=== PATIENT | male | born 1960 | race Caucasian/White ===

== ENCOUNTER 2018-04-17 14:12 | Emergency (ER) | payer OTHER ==
[2018-04-17] MEDS ORDERED: NS 0.9% 1000 ML* 1,000 ML IV ONE (14:22)
[2018-04-17] MEDS ORDERED: HYDROmorphone INJ* 2 MG/ML CARPUJECT SYRINGE IV SLOW PU ONE (14:24)
--- NOTE | 2018-04-17 14:26 | ED ---
Abdominal Pain/Male - HPI Summary HPI Summary: This is scribe Sarah Liu documenting for attending Anil Gross MD. 57 year old M [place] [facility] [place] severe [place] secondary to right-sided abdominal pain radiating to his right groin that began 40 minutes ago after out- patient liver biopsy. The patient rates the pain 10/10 in severity. Symptoms aggravated by nothing. Symptoms alleviated by nothing. Nurse from biopsy reports diaphoresis, hypertension. He had ultrasound and CT scan without contrast done earlier with Dr. Lopez, radiology. Per nurse from biopsy, patient has no cardiac hx, no respiratory hx. - History of Current Complaint Stated Complaint: ABD PAIN Hx Obtained From: Other: - nurse from biopsy Onset/Duration: Lasting Minutes - 40 minutes, Still Present Timing: Constant Severity Currently: Severe Pain Intensity: 10 Pain Scale Used: 0-10 Numeric Location: Other - right-sided Radiates: Yes Radiates to: Other - right groin Aggravating Factor(s): Nothing Alleviating Factor(s): Nothing Associated Signs And Symptoms: Positive: Other - diaphoresis, hypertension - Allergies/Home Medications Allergies/Adverse Reactions: Allergies Allergy/AdvReac Type Severity Reaction Status Date / Time No Known Allergies Allergy Verified 04/17/18 12:06 Home Medications: Home Medications [place]-3 Fatty Acids/Fish Oil [Fish Oil 1,000 mg Capsule] 1 each PO BID 04/17/18 [History Confirmed 04/17/18] PMH/Surg Hx/FS Hx/Imm Hx Previously Healthy: No Cardiovascular History: Denies: Hx Hypertension Respiratory History: Denies: Hx Asthma, Hx Chronic Obstructive Pulmonary Disease (COPD) GI History: Denies: Hx Cirrhosis - Surgical History Surgery Procedure, Year, and Place: [place], [place] [facility] [place]. liver biopsy 04/17/2018 Infectious Disease History: Denies: Hx Hepatitis - Family History Known Family History: Negative: Blood Disorder - Social History Alcohol Use: Daily Alcohol Amount: states 15 oz per week Hx Substance Use: No Substance Use Type: Reports: None Hx Tobacco Use: Yes Smoking Status (MU): Smoker, Current Status Unknown Type: Smokeless Tobacco Amount Used/How Often: daily Review of Systems Positive: Skin Diaphoresis, Other - hypertension Positive: Abdominal Pain - radiating to his right groin All Other Systems Reviewed And Are Negative: Yes Physical Exam - Summary Physical Exam Summary: VITAL SIGNS: Reviewed. GENERAL: Patient is a well-developed and nourished male who is in severe distress. HEAD AND FACE: Normocephalic and atraumatic. EYES: PERRLA, EOMI x 2, No injected conjunctiva. EARS: Hearing grossly intact. Ear canals and tympanic membranes are WNL. MOUTH: Oropharynx within normal limits. NECK: Supple, trachea is midline, no adenopathy, no JVD. CHEST: Symmetric, no tenderness at palpation LUNGS: Clear to auscultation bilaterally. No wheezing or crackles. CVS: RRR, S1 and S2 present, no murmurs or gallops appreciated. ABDOMEN: Abdominal distension, right-sided abdominal tenderness. Some guarding, no rebound EXTREMITIES: FROM in all major joints, no edema, no cyanosis or clubbing. NEURO: Alert and oriented x 3. No acute neurological deficits. Speech is normal. SKIN: Patient is diaphoretic Triage Information Reviewed: Yes Vital Signs Reviewed: Yes Diagnostics - Laboratory Result Diagrams: 04/17/18 14:55 04/17/18 14:55 Lab Statement: Any lab studies that have been ordered have been reviewed, and results considered in the medical decision making process. - EKG 1428 Cardiac Rate: Bradycardia - 54 BPM EKG Rhythm: Sinus Bradycardia EKG Interpretation: Poor quality EKG without any ST elevations Re-Evaluation - Re-Evaluation First Eval Re-Evaluation Time: 15:26 Comment: Patient is complaining of no pain. Pain is rated 0/10. Upon exam, abdomen is soft, non-tender except for area of biopsy, has good bowel sounds. Abdominal Pain Fem Course/Dx - Course Assessment/Plan: Patient is a 57-year-old male who presents to the emergency room after he was transferred from radiology department with chief complaint of severe abdominal pain. It is reported that the patient had a liver biopsy approximately 2:10 PM and after the biopsy the patient developed severe right- sided abdominal pain. Initial physical exam the patient is diaphoretic and with tenderness in the right side of the abdomen with some guarding but no rebound. Initially the we obtained 2 weeks IV accesses, the patient was given diluted for the pain and that work was ordered. The patient is hemodynamically at this time. I placed a consult with surgery with Dr. Moses that the doctor said was in the OR performing surgery. Dr. Nicolas who performed the biopsy reports that he did a abdominal ultrasound which show no abnormality. He also perform an abdominopelvic CT without contrast and shows that his no acute findings. Blood work without any significant abnormality. The patient has been observed for approximately 3 hours and the pain did not return. The pain was resolved with the medication. I did multiple abdominal exams and the patient's pain did not return the abdomen at this point is soft nontender with positive bowel sounds. I discussed the case with Dr. Nicolas from radiology who performed the biopsy and since the patient doesn't have any pain, bilateral signs are stable, the patient can be discharged home with follow-up with PCP. I gave her specific instructions to the patient and the patient's that he gave he develops any other pain, shortness of breath, nausea vomiting, diarrhea or constipation or any other symptoms he should return to the emergency room for further workup and management. Patient is hemodynamically stable alert and oriented 3. - Diagnoses Provider Diagnoses: Right sided abdominal pain Discharge - Sign-Out/Discharge Documenting (check all that apply): Patient Departure - Discharge Plan Condition: Stable Disposition: HOME Patient Education Materials: Abdominal Pain (ED) Referrals: Walter Le MD [Primary Care Provider] - Additional Instructions: Patient is discharged home with follow-up with primary care physician. Patient given instruction if any increased abdominal pain, nausea vomiting or diarrhea he should return to the emergency room for further workup and management. Patient is to increase his fluid intake. - Billing Disposition and Condition Condition: STABLE Disposition: Home
[2018-04-17 15:08] LABS: ABS Basophils 0 10^3/ul (0-0.2); ABS Eosinophils 0.1 10^3/ul (0-0.6); ABS Lymphocytes 3.2 10^3/ul (1.0-4.8); ABS Monocytes 0.3 10^3/ul (0-0.8); ABS Neutrophils 3.5 10^3/ul (1.5-7.7); ABS Nucleated RBC 0 10^3/ul; Eosinophil % 1.5 % (0-6); Hematocrit 46 % (42-52); Hemoglobin 16.3 g/dl (14.0-18.0); Lymphocyte % 44.6 % (25-47); Mean Corpuscular HGB Conc 35 g/dl (31-36); Mean Corpuscular Hemoglobin 32 pg (27-31); Mean Corpuscular Volume 91 fL (80-94); Mean Platelet Volume 7.2 um3 (7.4-10.4); Nucleated Red Blood Cells % 0.1; Platelet Count 194 10^3/ul (150-450); Red Blood Count 5.07 10^6/ul (4.00-5.40); Red Cell Distribution Width 14 % (10.5-15); White Blood Count 7.2 10^3/ul (3.5-10.8)
[2018-04-17 15:19] LABS: INR 0.98 (0.77-1.02)
[2018-04-17 15:26] LABS: EGFR Non-African American 78.5 (>60)
[2018-04-17 16:35] LABS: Urine Appearance Clear; Urine Blood Negative (Negative); Urine Color Yellow; Urine Ketones Trace (Negative); Urine Protein Negative (Negative); Urine Specific Gravity 1.015 (1.010-1.030); Urine Urobilinogen Negative (Negative)
[2018-04-17 16:57] VITALS: BP 160/102
== END 2018-04-17 17:14 | disposition home or self-care (01) ==
LOC: ED 14:12
DX: R10.9 Unspecified abdominal pain (principal); I10 Essential (primary) hypertension; Z87.891 Personal history of nicotine dependence
CPT/HCPCS: 36415; 80053; 81003; 83605; 83690; 84484; 85025; 85610; 85730; 86140; 86850; 86900; 86901; 93005; 96374; 99283; J1170

== ENCOUNTER 2020-01-21 20:10 | Inpatient (IN) | payer OTHER ==
[2020-01-21] MEDS ORDERED: NS 0.9% 1000 ML** 1,000 ML IV ONE (20:16)
[2020-01-21] MEDS ORDERED: Heparin for STEMI(*) 5,000 UNITS/ML 1 ML VIAL IV ONE (20:16)
[2020-01-21] MEDS ORDERED: Nitroglycerin TAB 0.4 MG* 0.4 MG TAB SL ONE (20:16)
--- NOTE | 2020-01-21 20:16 | ED ---
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 Patient reports he had just finished eating supper when his chest pain began. Patient states he then burped a few times and felt nauseous and diaphoretic. Denies vomiting. He reports he has never had these symptoms in the past. Denies shortness of breath, cough, fever, chills. 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 No nitroglycerin was given. Patient denies PMHx. Patient does not take any medications on a daily basis. He chews tobacco. Medications reviewed. Allergies noted. 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 Negative: Shortness of Breath, Fever, Vomiting - Allergy/Home Medications Allergies/Adverse Reactions: Allergies Allergy/AdvReac Type Severity Reaction Status Date / Time No Known Allergies Allergy Verified 04/17/18 12:06 Home Medications: Home Medications [place]-3 Fatty Acids/Fish Oil [Fish Oil 1,000 mg Capsule] 1 each PO BID 04/17/18 [History Confirmed 01/21/20] Tadalafil (NF) [Adcirca (NF)] 20 mg PO DAILY PRN 01/21/20 [History Confirmed ] Aspirin 81 mg CHEW TAB* 81 mg PO DAILY 90 Days #90 tab.chew 01/24/20 [Rx] Atorvastatin* [Lipitor 80 MG*] 80 mg PO 1700 90 Days #90 tab 01/24/20 [Rx] Lisinopril TAB* [Prinivil TAB 5 MG*] 5 mg PO DAILY 90 Days #90 tab 01/24/20 [Rx] Metoprolol Succinate XL TAB* [Toprol XL TAB*] 75 mg PO DAILY 30 Days #45 tab.xl 01/24/20 [Rx] Ticagrelor* [Brilinta 90 MG*] 90 mg PO BID 90 Days #180 tab 01/24/20 [Rx] metFORMIN* [Glucophage 500 MG TAB *] 500 mg PO DAILY 30 Days #30 tab 01/24/20 [ Rx] PMH/Surg Hx/FS Hx/Imm Hx Endocrine/Hematology History: Denies: Hx Diabetes Cardiovascular History: Denies: Hx Hypertension Respiratory History: Denies: Hx Asthma, Hx Chronic Obstructive Pulmonary Disease (COPD) GI History: Denies: Hx Cirrhosis - Surgical History Surgical History: Yes Surgery Procedure, Year, and Place: [place] [facility] liver biopsy 04/17/2018 Infectious Disease History: Denies: Hx Hepatitis, Traveled Outside the [place] in Last 30 Days - Family History Known Family History: Negative: Blood Disorder - Social History Alcohol Use: Daily Alcohol Amount: states 15 oz per week Hx Substance Use: No Substance Use Type: Reports: None Hx Tobacco Use: Yes Smoking Status (MU): Smoker, Current Status Unknown Type: Smokeless Tobacco Do You Chew or Dip Tobacco: Yes - chews tobacco Amount Used/How Often: daily Review of Systems Positive: Skin Diaphoresis. Negative: Fever, Chills Positive: Chest Pain Negative: Shortness Of Breath, Cough Gastrointestinal: Other - POSITIVE: belching Positive: Nausea. Negative: Vomiting Musculoskeletal: Other - POSITIVE: left arm pain All Other Systems Reviewed And Are Negative: Yes Physical Exam - Summary Physical Exam Summary: Constitutional: Well-developed, Well-nourished, Alert. Mildly distressed Skin: Warm, Diaphoretic. HENT: Normocephalic; Atraumatic Eyes: Conjunctiva normal Neck: Musculoskeletal ROM normal neck. (-) JVD, (-) Stridor, (-) Tracheal deviation Cardio: Rhythm regular, rate normal, Heart sounds normal; Intact distal pulses; The pedal pulses are 2+ and symmetric. Radial pulses are 2+ and symmetric. (-) Murmur Pulmonary/Chest wall: Effort normal. (-) Respiratory distress, (-) Wheezes, (-) Rales Abd: Soft, (-) tenderness, (-) Distension, (-) Guarding, (-) Rebound Musculoskeletal: (-) Edema Lymph: (-) Cervical adenopathy Neuro: Alert, Oriented x3 Psych: Mood and affect Normal Triage Information Reviewed: Yes Vital Signs On Initial Exam: Initial Vitals Temp Pulse Resp BP Pulse Ox 97 F 84 20 162/134 98 01/21/20 20:19 01/21/20 20:19 01/21/20 20:19 01/21/20 20:19 01/21/20 20:19 Vital Signs Reviewed: Yes Procedures - Sedation Patient Received Moderate/Deep Sedation with Procedure: No Diagnostics - Laboratory Result Diagrams: 01/22/20 05:10 01/23/20 05:57 Lab Statement: Any lab studies that have been ordered have been reviewed, and results considered in the medical decision making process. - Radiology Chest XR Radiology Interpretation Completed By: ED Physician Summary of Radiographic Findings: Pending official radiology report. - EKG 20:10 Cardiac Rate: NL - at 76 bpm EKG Rhythm: Sinus Rhythm Summary of EKG Findings: EKG at 20:10 shows sinus rhythm at a rate of [address] elevations of 2 mm in V1-V3. Hyperacute T waves in those leads. No reciprocal changes. This EKG was interpreted and reviewed by ED physician. Re-Evaluation - Re-Evaluation First Eval Re-Evaluation Time: 20:30 Comment: Dr. Valencia, interventionalist, at bedside. Patient will go to microbiology lab analyst. Chest Pain Course/Dx - Course Course Of Treatment: Patient is here with 3 hours of chest pain that acutely became worse this prior to EMS arrival. Upon arrival here, patient was noted to have ST elevations in his anterior leads with no reciprocation. Patient's EMS EKGs were concerning as well. Given patient's presentation and EKG changes , a code STEMI was called. Patient was emergently given 7000 units of heparin, 180 mg of Brilinta. Patient received 324 mg of aspirin with EMS. Patient did receive nitroglycerin in the ED and then later said he took erectile dysfunction medicine this morning. Patient's blood pressure was stable after receiving nitroglycerin. Patient was emergently taken to the [facility] by Dr. Valencia. - Diagnoses Provider Diagnoses: STEMI (ST elevation myocardial infarction) During the Visit The Following Alert/Code Occurred: STEMI - at 20:15 - Provider Notifications Discussed Care Of Patient With: Alhaji Valencia Time Discussed With Above Provider: 20:23 Instructed by Provider To: Other - Discussed case with Dr. Valencia, interventionalist, who will come see patient in the ED. - Critical Care Time Critical Care Time: 30-74 min - 35 minutes Critical Care Statement: Critical care time is provided exclusive of any time spent performing procedures. Discharge ED - Sign-Out/Discharge Documenting (check all that apply): Patient Departure - [place] [facility] [place] Discharge Plan Condition: Stable Disposition: ADMITTED TO [facility] - Billing Disposition and Condition Condition: STABLE Disposition: Admitted to [facility] - Attestation Statements Document Initiated by Scribe: Yes Documenting Scribe: Tiffany Barnhart Provider For Whom Scribe is Documenting (Include Credential): Cyrus Fiore MD Scribe Attestation: Tiffany Greenfield, scribed for Cyrus Fiore MD on 01/24/20 at 0937. Scribe Documentation Reviewed: Yes Provider Attestation: The documentation as recorded by the scribeTiffany accurately reflects the service I personally performed and the decisions made by , Cyrus Fiore MD Status of Scribe Document: Viewed
[2020-01-21] MEDS ORDERED: Ticagrelor* 90 MG TAB PO ONE (20:23)
[2020-01-21] MEDS ORDERED: Heparin 2 UNITS/ML IVPREMIX* 2,000 ML IV ONE (20:31)
[2020-01-21] MEDS ORDERED: nitroGLYCERIN DRIP* 0 MCG/0 ML BTL ONE (20:31)
[2020-01-21] MEDS ORDERED: VERAPAMIL 2.5 MG/ML 2 ML VIAL ** 5 mg/2 ml ONE (20:31)
[2020-01-21] MEDS ORDERED: Heparin(*) 1000 UNIT/ML 10 ML VIAL CATH LAB IV ONE (20:31)
[2020-01-21] MEDS ORDERED: Lidocaine 1% INJ* 10 MG/ML 30 ML SDV ONE (20:32)
[2020-01-21] MEDS ORDERED: Iohexol 350 (CONTRAST) 200 ML MDV IV ONE ×2 (20:32→21:42)
[2020-01-21 20:34] LABS: ABS Eosinophils 0.1 10^3/ul (0-0.6); ABS Lymphocytes 3.4 10^3/ul (1.0-4.8); ABS Monocytes 0.5 10^3/ul (0-0.8); ABS Neutrophils 3.9 10^3/ul (1.5-7.7); Eosinophil % 1.5 %; Hematocrit 49 % (42-52); Hemoglobin 17.2 g/dL (14.0-18.0); Lymphocyte % 42.5 %; Mean Corpuscular HGB Conc 35 g/dL (31-36); Mean Corpuscular Hemoglobin 32 pg (27-31); Mean Corpuscular Volume 91 fL (80-94); Mean Platelet Volume 7.3 fL (7.4-10.4); Nucleated Red Blood Cells % 0.1; Platelet Count 198 10^3/uL (150-450); Red Blood Count 5.42 10^6 /uL (4.18-5.48); Red Cell Distribution Width 13 % (10-15); White Blood Count 8.1 10^3/uL (3.5-10.8)
[2020-01-21] MEDS ORDERED: niCARdipine 0.1MG/ML IVPREMIX* 20 MG/200 ML BAG IV ONE (20:41)
[2020-01-21 20:46] LABS: Activated Partial Thrombo Time 35.8 seconds (26.0-38.0); INR 1.06 (0.82-1.09)
[2020-01-21 20:55] LABS: ALT 71 U/L (7-52); AST 57 U/L (13-39); Albumin 4.6 g/dL (3.2-5.2); Albumin/Globulin Ratio 1.4 (1-3); Alkaline Phosphatase 37 U/L (34-104); Anion Gap 12 mmol/L (2-11); BUN/Creatinine Ratio 11.6 (8-20); Blood Urea Nitrogen 11 mg/dL (6-24); CO2 Carbon Dioxide 25 mmol/L (22-32); Calcium 9.6 mg/dL (8.6-10.3); Chloride 102 mmol/L (101-111); EGFR African American 98.9 (>60); EGFR Non-African American 81.7 (>60); Globulin 3.2 g/dL (2-4); Glucose 212 mg/dL (70-100); Potassium 3.6 mmol/L (3.5-5.0); Sodium 139 mmol/L (135-145); Total Protein 7.8 g/dL (6.4-8.9)
[2020-01-21 21:05] LABS: Troponin I 0.12 ng/mL (<0.03)
[2020-01-21] MEDS ORDERED: Acetaminophen TAB* 325 MG PO PRN (21:58)
[2020-01-21] MEDS ORDERED: Zolpidem TAB* 5 MG PO PRN (21:58)
[2020-01-21] MEDS ORDERED: Ondansetron INJ* 2 MG/ML VIAL IV PRN (21:58)
[2020-01-21] MEDS ORDERED: NS 0.9% 1000 ML** 1,000 ML IV SCH (22:00)
[2020-01-21] MEDS ORDERED: Atorvastatin* 80 MG TAB PO ONE (22:03)
[2020-01-21 23:03] LABS: Creatine Kinase 303 U/L (10-223)
[2020-01-21 23:09] LABS: CKMB ng/mL 16.3 ng/mL (0.6-6.3)
[2020-01-21] MEDS: Metoprolol Tartrate TAB* 25 MG PO SCH (23:16)
[2020-01-21 23:17] LABS: Troponin I 2.24 ng/mL (<0.03)
[2020-01-22 05:21] LABS: ABS Eosinophils 0.1 10^3/ul (0-0.6); ABS Lymphocytes 2.7 10^3/ul (1.0-4.8); ABS Monocytes 0.5 10^3/ul (0-0.8); ABS Neutrophils 5.9 10^3/ul (1.5-7.7); Eosinophil % 1.3 %; Hematocrit 45 % (42-52); Hemoglobin 15.7 g/dL (14.0-18.0); Lymphocyte % 29.5 %; Mean Corpuscular HGB Conc 35 g/dL (31-36); Mean Corpuscular Hemoglobin 32 pg (27-31); Mean Corpuscular Volume 91 fL (80-94); Mean Platelet Volume 7.2 fL (7.4-10.4); Platelet Count 177 10^3/uL (150-450); Red Blood Count 4.92 10^6 /uL (4.18-5.48); Red Cell Distribution Width 14 % (10-15); White Blood Count 9.3 10^3/uL (3.5-10.8)
[2020-01-22 05:36] LABS: Albumin 3.9 g/dL (3.2-5.2); Calcium 8.5 mg/dL (8.6-10.3); Potassium 3.9 mmol/L (3.5-5.0); Total Bilirubin 0.6 mg/dL (0.2-1.0)
[2020-01-22 05:37] LABS: Creatine Kinase 507 U/L (10-223)
[2020-01-22 05:42] LABS: Albumin/Globulin Ratio 1.6 (1-3); BUN/Creatinine Ratio 11.7 (8-20); EGFR Non-African American 104.1 (>60); Globulin 2.4 g/dL (2-4); Total Protein 6.3 g/dL (6.4-8.9); Troponin I 11.28 ng/mL (<0.03)
[2020-01-22 05:43] LABS: CKMB ng/mL 41.3 ng/mL (0.6-6.3)
[2020-01-22] MEDS: Metoprolol Tartrate TAB* 25 MG PO SCH ×4 (06:17→22:30)
[2020-01-22] MEDS: Aspirin 81 mg CHEW TAB* 81 MG TAB.CHEW PO SCH (08:12)
[2020-01-22] MEDS: Ticagrelor* 90 MG TAB PO SCH ×2 (08:12→22:30)
[2020-01-22] MEDS ORDERED: Metoprolol Tartrate TAB* 25 MG PO ONE (08:30)
[2020-01-22] MEDS ORDERED: Lisinopril TAB* 5 MG ONE (08:38)
--- NOTE | 2020-01-22 10:08 | HP ---
CC: Dr. Walter Le ADMISSION HISTORY AND PHYSICAL: DATE OF ADMISSION: 01/21/20 CHIEF COMPLAINT: Chest discomfort with radiation to the arm with diaphoresis and EKG suggesting ante rior wall STEMI starting 3 hours prior to the patient's arrival. HISTORY OF PRESENT ILLNESS: The patient is a 59-year-old gentleman with no prior known cardiac histo ry. Specifically, he denies any history of myocardial infarction, congestive heart failure, or signi ficant heart rhythm disturbance. He was in his usual state of health and has had sexual intercourse with his and developed the onset of chest discomfort. Over the next course of some 3 hours at h ome, it did not seem to go away, eventually radiating to his arms, developing diaphoresis and some na useousness. He called the EMS, who brought him in and was noted to have ST-segment elevations in the early precordial leads and very subtle ST depression in the inferior leads. STEMI alert was called. The patient received heparin, Brilinta, and aspirin. When I saw the patient, he was better, but st ill having symptoms. The risks and benefits were explained, he understood them and wished to proceed to the cardiovascular lab. PAST MEDICAL HISTORY: The patient has a history of erectile dysfunction, but denies any significant known history of hypertension, hyperlipidemia, diabetes. He does chew tobacco for 30 years and he caceres s a family history of a mother who had CHF in her 50s, but no other cardiac history in the immediate family. MEDICATIONS: The patient takes erectile dysfunction medication and had taken it this morning. ALLERGIES: No known allergies. FAMILY HISTORY: Mother with CHF in the 50s, also lung disease. No other immediate family with coron regina artery disease. SOCIAL HISTORY: The patient chews tobacco x30 years. REVIEW OF SYSTEMS: Pertinent to proceeding to the cardiovascular laboratory - the patient denies any history of stroke or TIAs. Denies any history of hematochezia, hematemesis, or hematuria. He has n o history of kidney dysfunction and he has no dye allergy. PHYSICAL EXAMINATION GENERAL: When I see him in the emergency room reveals a pleasant gentleman, in mild distress. VITAL SIGNS: Blood pressure 162, initially of 134, on repeat 160/90; pulse 84; respirations 20; O2 s aturation 98% on room air. NECK: Supple without increased JVP. CHEST: Clear with no active rales, rhonchi, or wheezes. HEART: Revealed no visible heaves, no palpable heaves or thrills. Heart sounds in general were dist ant. No significant murmur. ABDOMEN: Obese, soft, nontender. EXTREMITIES: Without edema. NEUROLOGIC: The patient is alert and oriented with normal mentation. MUSCULOSKELETAL: The patient moves all extremities appropriately. PSYCHOLOGICAL: The patient with appropriate affect for his situation. DIAGNOSTIC STUDIES/LAB DATA: Electrocardiogram from the emergency room revealed J- point elevation in V1, V2 and subtly in V3 with mildly hyperacute T waves. There was subtle ST-segment depression in II, III, aVF as well as slightly in aVL. Laboratory tests - pending at the time of the evaluation in the emergency room. OVERALL ASSESSMENT: Mr. Martinez presents now 3 hours into what probably is an anterior ST-segment elev ation myocardial infarction. He is somewhat better and I wonder whether or not he has reperfused to probably the LAD territory. Clearly, he may have a critical lesion in his LAD that warrants immediat e cardiac catheterization, possible intervention. The risks and benefits were explained to him of th e procedure and he understands them and wished to proceed. He has appropriately been given heparin t herapy, Brilinta, and aspirin. Of note, the emergency room physician did give him a nitroglycerin be fore he realized he had the erectile dysfunction medication this morning. Of note, his blood pressur e did not plummet and if anything is still hypertensive. Further management will be made pending res ults of the cardiac catheterization. [id number]/[facility] #: [id number]
--- NOTE | 2020-01-22 10:16 | PN ---
PROGRESS NOTE: DATE OF SERVICE: 01/22/20 PROBLEM LIST: 1. Acute anterior wall myocardial infarction. 2. Hypertension. 3. Erectile dysfunction. SUBJECTIVE: Pk is doing well overnight since intervened on to his proximal left anterior descending artery. He had a critical proximal lesion of 90% that had MARY-3 flow at the time of injection in the laboratory development technician. He underwent successful primary stent placement. Since then he has done well. He denies any recurrent chest or arm discomfort, shortness of breath, nausea, vomiting or diaphoresis. He denies any right radial artery area discomfort. OBJECTIVE: Vital Signs: Reveal blood pressure 165/102, pulse is 70, respirations 17, O2 saturation 95% on room air. Neck is supple. There is no obvious increased JVP. Carotid with good upstroke and volume without bruits. Conjunctivae are pink. Sclerae clear. Lungs: Reveal no accessory muscle usage. There is no active rales, rhonchi or wheezes. Heart: Reveals no visible heaves. No palpable heaves or thrills. Normal S1, S2. Again, heart sounds are distant in nature. Abdomen is obese. Extremities without significant edema. The right radial artery site is well healed with good antegrade flow using reverse Barbeau technique. Neuro: The patient is alert and oriented with no limitation. Musculoskeletal: The patient moves all extremities. Psychological : The patient with normal affect. LABORATORY RESULTS: Reveal a hemoglobin and hematocrit of 15.7 and 45 with platelet count of 177,000, white count 9300. Sodium 138, potassium 3.9, chloride 107, bicarb 24, BUN and creatinine of 9 and 0.77. His cardiac enzymes reveal an initial troponin in the emergency room of 0.12. Followup troponins of 2.24 and then 11.28. There is a 10 o'clock sample that will be drawn. Fasting glucose is 162. SGOT 86, SGPT 60. Electrocardiogram this morning reveals normal sinus rhythm, heart rate 71, normal NH, QRS, and QT intervals. There are flat T waves in V5 and subtly in V6. T-wave inversion is seen in aVL. There is nonspecific ST minimal elevation in III and aVF. OVERALL ASSESSMENT: Pk has done well status post percutaneous coronary intervention into what clearly was an acute ST segment elevation anterior myocardial infarction with a critical proximal LAD lesion. Of note, his blood pressure is elevated. We will increase his metoprolol tartrate to 25 mg q.8 hours. We will start him on lisinopril 2.5 mg now and consider increasing that through the course of the day , if needed. He will be up and about as tolerates. We will transfer him when stable up to telemetry. He will have an echocardiogram tomorrow morning to serve as baseline for his overall left ventricular systolic function. I reviewed with him at length the importance of dual antiplatelet therapy. I also reviewed with him the idea of not taking more than 81 mg a day of aspirin. I filled out his stent card for him and I also showed his education booklet that he will be reading while in hospital. [id number]/[facility] #: [id number] EWELINA
[2020-01-22] MEDS: Lisinopril TAB* 5 MG PO SCH ×2 (10:23→11:17)
[2020-01-22 10:37] LABS: HDL Cholesterol 36.4 mg/dL
[2020-01-22] MEDS ORDERED: Lisinopril TAB* 5 MG PO ONE (11:19)
[2020-01-22 12:10] LABS: Creatine Kinase 434 U/L (10-223)
--- NOTE | 2020-01-22 12:11 | CATH ---
CC: Dr. Walter Le* CARDIAC CATH AND INTERVENTIONAL REPORT: DATE OF PROCEDURE: 01/21/20 INDICATIONS FOR PROCEDURE: The patient presents with chest discomfort and suggestive findings on EKG of an ST-segment elevation, anterior wall myocardial infarction. PROCEDURE: Coronary arteriography, primary stenting of a proximal LAD, utilizing a 4.0 x 16 mm long Synergy drug eluting stent dilated at 4.2 mm, left heart catheterization, left ventriculography. The patient was interviewed and examined in the emergency room where the risks and benefits were explained, he understood and wished to proceed. APPROACH UTILIZED: The right radial artery was assessed by ultrasound, was found to be acceptable in size and as such this was the approach utilized. EQUIPMENT UTILIZED: 1. The right radial artery sheath was a 6-Swedish glide sheath. 2. Diagnostic coronary catheter with a TIG-4 5-Swedish catheter and a 5-Swedish FL 3.5 curve diagnostic catheter. 3. The diagnostic guidewire was a 260 length Johnson curved guidewire. 4. The guiding catheter utilized was a 6-Swedish VL 3.5 curve runway guide catheter. The interventional wire was a 190 cm length All Star guidewire. 5. The stent utilized was a 4.0 x 16 mm long Synergy drug-eluting stent. 6. The post-stent deployment balloon catheter was a 4.0 x 15 mm NC Emerge balloon. 7. The left heart catheterization catheter was a 5-Swedish PIG short radial catheter. 8. The closure device utilized was a Vasc Band Long. PRECARDIAC CATHETERIZATION LABORATORY RESULTS: Not available at the beginning of the cardiac catheterization - came back during the catheterization - hemoglobin 17.2, hematocrit 49, white count 8100, platelets 198,000. BUN and creatinine was 11 and 0.95. Sodium 139, potassium 3.6, chloride 102, bicarb 25. INR 1.06. Troponin 0.12. SGOT 57, SGPT 71. MEDICATIONS GIVEN DURING THE PROCEDURE: Right radial artery cocktail with 3 mg of Verapamil. Of note, given that fact that the patient had taken an erectile dysfunction medication in less than 24 hours, nitroglycerin was eliminated from the cocktail, 200 mcg of Cardene were utilized. The patient had already received a heparin bolus of 7000 units in the emergency room and heparin was not given in the cocktail. During the case the patient received additional heparin therapy of 2500 to achieve a therapeutic ACT for intervention. Local Xylocaine was utilized. DESCRIPTION OF PROCEDURE: The patient was brought to the cardiovascular laboratory where a formal time-out was performed. He was prepped and draped in a sterile fashion and under ultrasound guidance, the right radial artery was cannulated and the sheath was placed and the cocktail was given. Coronary arteriography was performed. Following this the decision was made to intervene into the proximal LAD. ACT was checked. Additional heparin therapy was given. The guidewire was passed down the left anterior descending artery and primary stenting was performed with post-stent balloon inflations to high pressure. Following this the artery was assessed with the wire removed. Left heart catheterization was then performed followed by left ventriculography with 28 cc of Omnipaque dye at a rate of 14 cc per second. The catheter was then pulled back across the aortic valve to recheck gradient. At the end of the case, the catheter and sheaths were removed and hemostasis was obtained with local pressure. The total contrast used was 198 cc of Omnipaque dye. The radiation exposure included 10.4 minutes of fluoro time. Air kerma radiation was 3435 mGy. The DAP radiation was 25,017 microgray per meter squared. At the end of the case, the catheter and the sheaths were removed and hemostasis was obtained with a Vasc Band. The reverse Barbeau was a B. RESULTS: HEMODYNAMIC DATA: Left heart catheterization revealed central aortic pressure of 157/88 with a mean of 117. Left ventricular pressure 165 over left ventricular end- diastolic pressure of 24. LEFT VENTRICULOGRAPHY: Performed in the JARAMILLO projection revealed moderate mid to distal and apical hypokinesis with overall EF estimated at approximately 45% to 50%. CORONARY ARTERIOGRAPHY: A. Right coronary artery - the right coronary artery had a proximal area of narrowing that appeared to be as much as 45% to 50%. Past this point in the right coronary artery, there were no significant obstructions noted. The right coronary artery supplied several thin acute marginal branches with a moderate size acute marginal branch just prior to turning on to the inferior surface of the heart that seemed to supply the distal inferior intraventricular septal area. The artery continued to supply small caliber PDA and first posterior left ventricular branch with a larger last second posterior left ventricular branch. There was no significant narrowing seen in these vessels. B. Left coronary artery: 1. Left main - minimal narrowing of the distal left main of 10% to 15%. 2. Left anterior descending artery. The left anterior descending artery appeared to have a critical 85% to 90% proximal lesion seen involving the first thin septal marshmallow runner. Past this point, the artery gave off multiple diagonal branches as the artery extended towards the apical region and slightly on to the distal inferior wall. No other significant lesion was noted throughout the course of the vessel. 3. Circumflex artery - a nondominant vessel supplying a high first obtuse marginal/trifurcation marginal branch which bifurcated in its mid to distal area. There was no significant obstruction seen. The continuation of the circumflex supplied a low-lying bifurcating obtuse marginal branch. Of note , the ostium of that artery after the high first obtuse marginal branch had a narrowing that appeared to be 40% to 45%. INTERVENTION INTO PROXIMAL LEFT ANTERIOR DESCENDING ARTERY: Successful reduction of critical proximal LAD 90% stenosis with primary stenting utilizing 4.0 x 16 mm long Synergy- drug eluting stent, post dilated to 4.2 mm, MARY 3 flow, no dissection seen with 0% residual stenosis. OVERALL ASSESSMENT: Mild left ventricular systolic dysfunction as described above with critical proximal LAD lesion successfully intervened as described. Dual antiplatelet therapy is mandatory for a minimum of a year in addition to high-dose stent therapy and risk factor management with blood pressure therapy. The patient does chew tobacco and we will have to talk to him about this as I believe this clearly will need to be altered as a lifestyle. [id number]/[facility] #: [id number] MTDD
[2020-01-22 12:15] LABS: CKMB ng/mL 38.2 ng/mL (0.6-6.3)
[2020-01-22 12:21] LABS: Troponin I 7.86 ng/mL (<0.03)
[2020-01-22] MEDS: Enoxaparin(*) 40 MG/0.4 ML SYR SUBCUT SCH (14:59)
[2020-01-22] MEDS: Atorvastatin* 80 MG TAB PO SCH (16:47)
[2020-01-22] MEDS ORDERED: Metoprolol Tartrate TAB* 25 MG PO SCH (21:00)
[2020-01-23 06:30] LABS: Albumin 3.9 g/dL (3.2-5.2); Albumin/Globulin Ratio 1.4 (1-3); BUN/Creatinine Ratio 14.5 (8-20); Calcium 8.9 mg/dL (8.6-10.3); EGFR African American 115.5 (>60); EGFR Non-African American 95.5 (>60); Globulin 2.8 g/dL (2-4); Total Protein 6.7 g/dL (6.4-8.9)
[2020-01-23] MEDS: Ticagrelor* 90 MG TAB PO SCH ×2 (08:23→20:41)
[2020-01-23] MEDS: Metoprolol Tartrate TAB* 25 MG PO SCH ×3 (08:23→20:41)
[2020-01-23] MEDS: Aspirin 81 mg CHEW TAB* 81 MG TAB.CHEW PO SCH (08:24)
[2020-01-23] MEDS: Lisinopril TAB* 5 MG PO SCH (08:24)
--- NOTE | 2020-01-23 11:29 | PN ---
PROGRESS NOTE: DATE OF SERVICE: 01/23/20 DIAGNOSES: 1. Acute anterior wall ST-segment elevation myocardial infarction. 2. Adult-onset diabetes. 3. Obesity. 4. Erectile dysfunction. SUBJECTIVE: Pk is doing very well, denying any specific chest or arm discomfort. He is now up and about walking without provoking any symptoms. He denies any significant right radial artery discomfort. OBJECTIVE: Blood pressure 128/60, pulse is 64, respirations 16, afebrile. Neck is supple. No increased JVP. Lungs are clear with no active rales, rhonchi or wheezes. Heart reveals no visible heaves. No palpable heaves or thrills. Normal S1, S2 with no significant S3, S4 gallop. No significant systolic or diastolic murmur. Abdomen is obese, soft, and nontender. Extremities without edema. The right radial artery site is well healed. There is no hematoma and there has been normal antegrade flow in the right radial artery. Neuro: The patient is alert and oriented with normal mentation. Musculoskeletal: The patient with normal gait. Psychiatric: The patient with normal affect. DIAGNOSTIC STUDIES/LAB DATA: Laboratory results reveal a sodium 138, potassium 4.0, chloride 104, bicarb 26, BUN of 12, creatinine 0.8. Fasting sugar was 161. Hemoglobin A1c from yesterday was 7.6. SGOT is 70 down from 86. Of note yesterday, the CPK-MB and troponin from 1145, were all decreasing with the peak CPK of 507, MB of 41.3, and troponin of 11.28. EKG is pending at this time. Unofficial echo report - I personally reviewed the echocardiogram and overall left ventricular systolic function appears to be well preserved with perhaps minimal apical hypokinesis. OVERALL ASSESSMENT: Seymour has done very well with intervention for his ST segment elevation anterior myocardial infarction. He is on beta-shaka, ROSSY inhibitor, appropriate high-dose statin, and dual antiplatelet agents. I did once again review with him the importance of his medications, but more importantly today, I spoke with him at length about stopping his chewing tobacco and also discussed with him the presence of what looks like the diagnosis new onset adult diabetes. We will have the hospitalist come to see the patient for assessment and recommendations. The patient will be up and about, and tomorrow morning, hopefully if stable, will be discharged home with follow up for a wound check followed by Cardiology appointment to have a formal carbon electrodes supervisor see him on a routine basis. He has an education booklet that I have reviewed with him and he has a stent card as well. I answered all of his questions to his satisfaction. [id number]/[facility] #: [id number] EWELINA
[2020-01-23] MEDS: metFORMIN* 500 MG TAB PO SCH (11:34)
--- NOTE | 2020-01-23 11:46 | CONS ---
CC: Dr. Le* [facility] MEDICINE CONSULTATION REPORT: DATE OF CONSULT: 01/23/20. PRIMARY CARE PHYSICIAN: Dr. Le. ATTENDING PHYSICIAN: Dr. Alhaji Valencia. CONSULTING PHYSICIAN: Dr. Jackelyn Arroyo (dictation provided by Lulu Garcia NP) . CHIEF COMPLAINT: Chest pain with finding of ST elevation MO. REASON FOR CONSULTATION: New-onset diabetes. HISTORY OF PRESENT ILLNESS: Mr. Martinez is a 59-year-old male with a past medical history of erectile dysfunction only, who presented to the hospital on 01/21/20 with concern for chest pain and diaphoresis. Please see the dictated H and P from Dr. Valencia for complete details. In brief, the patient was found to have an ST elevation MO in the anterior leads and was taken to the cardiac brick and blocker aid labor where a stent was placed to the LAD. The patient is chest pain free now. In terms of risk factors for coronary artery disease, he does not have a significant family history. However, he does chew tobacco. He was also found to have an elevated a.m. blood glucose at 160 and then a hemoglobin A1c of 7.6. The patient states that he had been told about 3 years ago that he had concern for diabetes, but he states he was able to manage that through dietary changes. He has gone through training at [facility] for [place] for diabetes per his report. PAST MEDICAL HISTORY: Erectile dysfunction. MEDICATIONS: Erectile dysfunction medication only. ALLERGIES: No known drug allergies. FAMILY HISTORY: His mother had CHF in the 50s but no immediate family members with coronary artery disease. SOCIAL HISTORY: The patient again chews tobacco and has been so for about 30 years. No report of significant alcohol use. He works at [employer]. His will be his healthcare proxy. REVIEW OF SYSTEMS: A 14-point review of systems was completed with Mr. Martinez and all those not mentioned above were negative. PHYSICAL EXAMINATION: Vital Signs: Temperature 97.1, pulse rate 64, respiratory rate 20, O2 saturation 95% on room air, blood pressure 128/60. General: Mr. Martinez is sitting in bed. He is in no acute distress. Neuro: He is alert. He is oriented x3. He moves all extremities equally. There is no facial asymmetry or focal weakness. Extraocular movements are intact. Heart: S1, S2. No murmur, rub, or gallop, and regular. Lungs: Clear to auscultation bilaterally with no accessory muscle use and good aeration. Abdomen: Soft, nontender with bowel sounds positive x4. Extremities: No cyanosis. No edema. Skin: Intact. DIAGNOSTIC STUDIES/LAB DATA: The patient's troponin on arrival was 0.12 and it trended up to 11.28 at its maximum and is now trending down. His hemoglobin A1c was found to be 7.6. ASSESSMENT: Mr. Martinez is a 59-year-old male who presented to the emergency room with chest pain, found to have an ST elevation MO and is now status post cardiac catheterization with placement of stent to the LAD. He has been found to have new- onset type 2 diabetes with a hemoglobin A1c of 7.6. Our recommendations are that he start metformin now 500 mg p.o. once daily. He can continue that for 7 to 10 days and then slowly titrate up by adding 1 tab in the evening, up to 2 g total. If he tolerates the medication well, this can be titrated by Dr. Le outpatient. I have also counseled him about avoiding carbohydrates and doing other dietary adjustments and increasing exercise once he is cleared through cardiac rehabilitation. He states, "I am aware what I need to do, I just haven't done it yet." I have given him counseling and encouragement. TIME SPENT: Approximately 40 minutes was spent on the consultation of this patient, more than half that time was spent with the patient at the bedside reviewing the events leading up to and during this hospitalization, performing the physical examination, and reviewing my plan of care. LULU GARCIA NP [id number]/[facility] #: [id number] EWELINA
--- NOTE | 2020-01-23 12:24 | ECHO ---
*[facility]* [place] [address] Fax #: [phone] Transthoracic Echocardiogram Patient: Pk Martinez : 1960 Study Date: 01/23/2020 Age: 59 Gender: M HR: Height: 69 in /175.3 cm BSA: 2.35 m^2 Weight: 269.4 lb /122.5 kg BMI: 39.9 kg/m^2 *Gumming Machine Operator: * Marcela Welsh [facility] *Referring Physician: * Alhaji Valencia MD *Reading Physician: * Fabienne Song MD Indications: Myocardial Infarction (new). History: Risk factors: Current tobacco use. Obese. Labs, prior tests, procedures, and surgery: Catheterization (01/21/2020). There was a stenosis which was treated with a stent. Conclusions Summary: - Left ventricle: Systolic function is normal. The estimated ejection fraction is 50-55%. Wall motion is normal; there are no regional wall motion abnormalities. - No significant valvular disease. No previous echocardiogram available. Study data: Transthoracic echocardiogram. Procedure: Transthoracic echocardiography was performed. Image quality was adequate. Complete 2D, spectral Doppler, and color flow Doppler. Location: Procedure room. Findings Left ventricle: The cavity size is normal. Wall thickness is mildly to moderately increased. Systolic function is normal. The estimated ejection fraction is 50-55%. Wall motion is normal; there are no regional wall motion abnormalities. There is no consistent Doppler evidence of clinically significant diastolic dysfunction. Right ventricle: The cavity size is normal. Wall thickness is increased. Systolic function is normal. Left atrium: The atrium is normal in size. Right atrium: The atrium is normal in size. Mitral valve: The leaflets are mildly thickened. There is no evidence of stenosis. There is no significant regurgitation. Aortic valve: The valve is trileaflet. There is no evidence of stenosis. There is no significant regurgitation. Tricuspid valve: The leaflets are normal thickness. There is no evidence of stenosis. There is no significant regurgitation. Pulmonic valve: Not well visualized. There is no significant regurgitation. Aorta: Aortic root: The aortic root is upper normal in size. Ascending aorta: The ascending aorta is poorly visualized. Aortic arch: The aortic arch is appears normal. Pericardium: There is no significant pericardial effusion. Pulmonary arteries: Systolic pressure can not be accurately estimated. Systemic veins: Inferior vena cava: Not well visualized. Measurements Left ventricle Value Ref Aortic valve Value Ref EDWINA, LAX 5.2 cm 4.2 - 5.8 Danny diam, ED 2.3 cm --------- ESD, LAX 3.6 cm 2.5 - 4.0 Peak v, S 1.34 m/sec --------- FS, LAX 30 % 25 - 43 VTI, S 27.1 cm --------- PW, ED, LAX (H) 1.2 cm 0.6 - 1.0 Mean grad, S 4.0 mm Hg --------- E', lat danny, TDI 10.8 cm/sec >=10.0 Peak grad, S 7.0 mm Hg - -------- E/e', lat danny, 5 LVOT/AV, VTI ratio 0.79 ---- ----- TDI E', med danny, TDI (L) 5.6 cm/sec >=7.0 Mitral valve Value R ef E/e', med danny, 11 Peak E 0.59 m/sec ---- ----- TDI Peak A 0.44 m/sec --------- E', avg, TDI 8.2 cm/sec Decel time 232 ms ---- ----- E/e', avg, TDI 7 <=14 Peak E/A ratio 1.3 - -------- LVOT Value Ref Pulmonic valve Value Ref Peak dawna, S 1.02 m/sec Peak v, S 0.74 m/sec --------- VTI, S 21.5 cm Peak grad, S 2.0 mm Hg --------- Peak grad, S 4 mm Hg Mean grad, S 2 mm Hg Aortic root Value Ref Root diam 3.4 cm <4.4 Ventricular septum Value Ref Root max diam/bsa, 1.4 cm/m^2 1.3 - 2.1 IVS, ED (H) 1.4 cm 0.6 - 1.0 ED Right ventricle Value Ref Aortic arch Value Ref EDWINA, LAX 3.3 cm Arch diam 2.5 cm --------- EDWINA minor ax, A4C 2.5 cm 1.9 - 3.5 Arch diam/bsa 1.1 cm/m^2 --------- mid Decending aorta Value Ref Left atrium Value Ref Ana peak dawna 1.02 m/sec --------- AP dim, ES 3.60 cm 3.00 - 4.00 Pulmonary veins Value Ref ML dim, A4C 4.0 cm Peak v, S 0.5 m/sec --------- SI dim, A4C 5.5 cm Peak v, D 0.48 m/sec --------- Vol/bsa, ES, A/L 22 ml/m^2 16 - 34 Peak S/D ratio 1 --------- A rev duration 124 ms --------- Right atrium Value Ref SI dim, ES 5.1 cm 3.4 - 5.3 ML dim, ES, A4C 4.0 cm 2.6 - 4.4 Estimated RAP 8 mm Hg Legend: (L) and (H) rafa values outside specified reference range. Prepared and electronically signed by Fabienne Song MD 01/23/2020 12:23
[2020-01-23] MEDS: Enoxaparin(*) 40 MG/0.4 ML SYR SUBCUT SCH (13:54)
[2020-01-23] MEDS: Atorvastatin* 80 MG TAB PO SCH (17:25)
[2020-01-24] MEDS: Aspirin 81 mg CHEW TAB* 81 MG TAB.CHEW PO SCH (08:05)
[2020-01-24] MEDS: metFORMIN* 500 MG TAB PO SCH (08:05)
[2020-01-24] MEDS: Lisinopril TAB* 5 MG PO SCH (08:05)
[2020-01-24] MEDS: Metoprolol Tartrate TAB* 25 MG PO SCH (08:06)
[2020-01-24] MEDS: Ticagrelor* 90 MG TAB PO SCH (08:06)
[2020-01-24] MEDS ORDERED: Metoprolol Succinate XL TAB* 50 MG PO ONE (08:25)
[2020-01-24] MEDS ORDERED: Metoprolol Succinate XL TAB* 50 MG PO SCH (09:00)
--- NOTE | 2020-01-24 10:23 | DS ---
CC: Dr. Le* DISCHARGE SUMMARY: DATE OF ADMISSION: 01/21/20 DATE OF DISCHARGE: 01/24/20 ATTENDING PHYSICIAN: Dr. Carr, Interventional Cardiology* (dictated by Linda Clark NP). PRIMARY CARE PHYSICIAN: Dr. Le. ADMITTING DIAGNOSES: 1. Anterior ST segment elevation myocardial infarction. 2. History of erectile dysfunction. 3. History of BARAKAT DISCHARGE DIAGNOSES: 1. Anterior ST elevation myocardial infarction, status post drug-eluting stent placement to proximal LAD (4.0 x 16 mm Synergy). Troponin peaks at 11.28. LVEF preserved. Now on aspirin, statin, beta shaka, and Brilinta therapy. Will need uninterrupted DAPT ( aspirin in combination with Brilinta ) for 12 months time. 2. Transaminitis, likely due to acute myocardial infarction. AST and ALT improving upon discharge, now on high intensity statin therapy. We will need close followup in regards to fasting lipid panel and liver function tests in 6 weeks' time. does have a notable history of BARAKAT based on prior Duplex in EHR 3. Newly diagnosed diabetes mellitus, now on metformin 500 mg. hemoglobin A1c was 7.6%. Will need close followup with PCP for consideration of transitioning from metformin to sodium-glucose transport inhibitor. 4. History of hyperlipidemia. LDL 104. Now on high-intensity statin therapy. LDL goal less than 70 given newly found coronary artery disease. PROCEDURES PERFORMED: The patient underwent an urgent left heart catheterization by Dr. Alhjai Valencia on 01/21/20 due to acute anterior STEMI. Per report, a 6-Guinean Glidesheath catheter was inserted to the right radial artery. 1. Left main; minimal narrowing of distal left main of 10% to 15% stenosis. 2. LAD; appeared to have critical 85% to 90% proximal lesion seen involving the first thin septal spark plug tester. Past at this point, the artery gave off multiple diagonal branches as the artery extended towards the apical region and slightly onto the distal inferior wall. No other significant lesions noted. 3. Left circumflex; nondominant vessel supplying high first obtuse marginal trifurcation marginal branch with bifurcated mid to distal area. No significant obstruction seen. Of note, the ostium of the artery after the high first obtuse marginal branch had narrowing that appeared to be 40% to 45% stenosis. 4. Right coronary artery; proximal area of narrowing that appeared as much as 45% to 50%. Past this, there were no other obstructions seen. Dominant vessel. INTERVENTIONS PERFORMED: A 4.0 x 16 mm drug eluting stent placement to proximal LAD; complications none thus far. COURSE OF HOSPITAL STAY: This is a pleasant 59-year-old male patient with a notable history of erectile dysfunction, who presented to [facility] on 01/21/20 due to complaints of chest discomfort radiating into the arm with associated diaphoresis. Symptoms started 3 hours prior to presentation after having sexual intercourse with his spouse. Initial ECG noted ST segment elevation and precordial leads with very subtle ST depression inferior leads, thus STEMI alert called. The patient received heparin, Brilinta, and aspirin therapy in emergency department and was taken emergently to the laboratory tech where he underwent successful drug eluting stent placement to proximal LAD. He was transferred to the ICU and monitored overnight in the ICU then was transferred to [facility] where he has been monitored on telemetry since. Troponin peaked at 11.28 on 01/22/20. LDL was 104. Hemoglobin A1c 7.6%. He had mild transaminitis that improved prior to discharge. Hospitalist was consulted due to probable newly diagnosed diabetes mellitus. They recommended metformin 500 mg a day, close followup with PCP for further dose adjustment in the future. The patient has been stable and asymptomatic. He is tolerating medication well. He has been up and ambulating with no complications. No ventricular ectopy or arrhythmias noted on telemetry. I personally spoke with his Mi this morning and reviewed discharge plan and reviewed medications, activity restrictions and follow up appointments. Current vital signs: Temperature is 98.7, pulse 62, respirations 16, oxygenation 94% room air, blood pressure 108/62. Echocardiogram was updated ; per report, LVEF 50% to 55%, no regional wall motion abnormalities, no significant valvular heart disease. ECG 01/24/20 reviewed; sinus rhythm, rate 61 with less than [address] segment elevation in leads II, III, aVF with Q-waves involving V1 through V3, T-waves inversion involving V2 through V6. This is consistent with prior ECG noted on 01/23/20. There have been no events on telemetry. He is tolerating medication therapy. Plan is discharge today. Please note in the past he had right upper quadrant duplex to evaluate liver, which showed hepatomegaly with fatty infiltration of liver. Again, he will need close followup in regards to liver function tests in approximately 6 weeks' time. The patient is stable and asymptomatic, ready for discharge. Right radial access site was examined, no thrill, no hematoma, 3 + radial pulse, nontender to palpation. DISCHARGE FOLLOWUP APPOINTMENTS: 1. Dr. Le in 7 to [address] Alhaji Valencia 02/02/20 at 2:45 p.m. at the medical office building. Discharge blood work to be obtained. The patient will need a fasting lipid panel and liver function tests in 4 to 6 weeks' time due to transaminitis with noted hepatomegaly on prior duplex and close followup with PCP in regards to diabetes management. ACTIVITY RESTRICTIONS: The patient was advised that he is not allowed to drive or operate machinery for at least 7 days. We will address returning back to work at his followup appointment on 02/02/20. He is aware to not lift more than 5 to 10 pounds for the next 7 to 10 days. He may shower, but not soak right radial access site. He is aware to avoid over vigorous exertion at this current time until directed on followup. DISCHARGE MEDICATIONS: 1. Aspirin 81 mg a day. 2. Brilinta 90 mg p.o. b.i.d. 3. Toprol 75 mg a day. 4. Metformin 500 mg a day. 5. Lisinopril 5 mg a day. 6. Atorvastatin [address] Carr has seen and examined the patient and agrees with the above assessment and plan. The patient to be discharged home today in stable condition. LINDA CLARK NP [id number]/[facility] #: [id number] EWELINA
[2020-01-24 11:06] VITALS: BP 138/59
[2020-01-25] MEDS ORDERED: Metoprolol Succinate XL TAB* 50 MG PO SCH (09:00)
== END 2020-01-24 11:00 | disposition home or self-care (01) | DRG 247 ==
LOC: ED 20:10 → CHICATH 20:55 → ICU 21:58 → MEDTELE 01-22 20:09
PROVIDERS: ADMIT Internal Medicine Cardiovascular Disease; ATTEND Internal Medicine Cardiovascular Disease
PROC: 4A023N7 Measurement of Cardiac Sampling and Pressure, Left Heart, Percutaneous Approach (ICD-10-PCS; 2020-01-21)
PROC: B211YZZ Fluoroscopy of Multiple Coronary Arteries using Other Contrast (ICD-10-PCS; 2020-01-21)
PROC: 027044Z Dilation of Coronary Artery, One Artery with Drug-eluting Intraluminal Device, Percutaneous Endoscopic Approach (ICD-10-PCS; principal; 2020-01-21 20:55)
DX: I21.09 ST elevation (STEMI) myocardial infarction involving other coronary artery of anterior wall (principal); Z68.41 Body mass index [BMI] 40.0-44.9, adult; N52.9 Male erectile dysfunction, unspecified; K75.81 Nonalcoholic steatohepatitis (NASH); R74.0 Nonspecific elevation of levels of transaminase and lactic acid dehydrogenase [LDH]; E11.9 Type 2 diabetes mellitus without complications; E78.5 Hyperlipidemia, unspecified; F17.220 Nicotine dependence, chewing tobacco, uncomplicated; E66.9 Obesity, unspecified; Z82.49 Family history of ischemic heart disease and other diseases of the circulatory system; Z79.899 Other long term (current) drug therapy
CPT/HCPCS: 36415; 71045; 80053; 80061; 82550; 82553; 83036; 84484; 85025; 85347; 85610; 85730; 87635; 93005; 93306; 96372; 99284; A9270-GY; C1725; C1769; C1876; C1887; C9606-LD; J1644; J1650; U0003